=== PATIENT | female | born 1975 | race African-American/Black ===

== ENCOUNTER 2024-08-29 13:10 | Emergency (ER) | payer MEDICAID, OTHER ==
[~2024-08-29] VITALS: Ht 177.8 cm; Wt 80.0 kg
[2024-08-29 13:13] VITALS: O2SAT 100
[2024-08-29] MEDS ORDERED: FAMOTIDINE 20MG/2ML VIAL IV STA (13:20)
[2024-08-29] MEDS ORDERED: HALOPERIDOL LACTATE 5MG/ML VIAL IM ONE (13:30)
[2024-08-29] MEDS: LACTATED RINGERS 1,000 ML IV ONE (13:30)
[2024-08-29 14:25] LABS: CLARITY URINE CLEAR (CLEAR); COLOR URINE YELLOW (YELLOW); GLUCOSE URINE NEGATIVE (NEGATIVE); KETONES URINE TRACE (NEGATIVE); LEUKOCYTE ESTERASE URINE NEGATIVE (NEGATIVE); NITRITE URINE NEGATIVE (NEGATIVE); OCCULT BLOOD URINE NEGATIVE (NEGATIVE); PH URINE 5.5 (4.5-8.0); PROTEIN URINE NEGATIVE (NEGATIVE); SPECIFIC GRAVITY URINE 1.015 (1.005-1.030); UROBILINOGEN URINE 0.2 E.U./dL (0.2-1.0)
[2024-08-29 14:29] LABS: BASOPHILS % 0.6 % (0.0-2.0); EOSINOPHILS % 1.4 % (0.0-5.0); HEMATOCRIT. 46.2 % (36.0-48.0); HEMOGLOBIN. 15.4 g/dL (12.0-16.0); LYMPHOCYTES % 23.1 % (20.0-50.0); MEAN CORPUSCULAR HEMOGLOBIN 28.2 pg (28.0-32.0); MEAN CORPUSCULAR HGB CONC 33.2 g/dL (31.0-37.0); MEAN CORPUSCULAR VOLUME 84.9 fL (81.0-99.0); MEAN PLATELET VOLUME 9.9 fl (7.4-10.4); MONOCYTES % 3.8 % (2.0-8.0); NEUTROPHILS % 71.1 % (40.0-76.0); PLATELET 211 x1000/uL (130-400); RED BLOOD CELL COUNT 5.44 mill/uL (4.2-5.4); RED CELL DISTRIBUTION WIDTH 15.3 % (11.6-14.6); WHITE BLOOD COUNT 7.7 x1000/uL (4.5-11.0)
[2024-08-29 14:39] LABS: PROTHROMBIN TIME 10.6 sec (9.6-11.0)
[2024-08-29 14:43] LABS: CARBON DIOXIDE 22 mEq/L (21-32); CHLORIDE 113 mEq/L (98-107); POTASSIUM 3.6 mEq/L (3.5-5.1); SODIUM 143 mEq/L (136-145)
[2024-08-29 14:44] LABS: CALCIUM 9.8 mg/dL (8.7-10.4)
[2024-08-29 14:48] LABS: CREATININE 0.9 mg/dL (0.6-1.0); GLUCOSE 96 mg/dL (70-105); HCG SCREEN NEGATIVE
[2024-08-29 14:49] LABS: UREA NITROGEN BLOOD 6 mg/dL (9-23)
[2024-08-29 14:50] LABS: ALANINE AMINOTRANSFERASE 29 IU/L (10-49); ALBUMIN 4.6 g/dL (3.2-4.8); ASPARTATE AMINOTRANSFERASE 28 IU/L (<34)
[2024-08-29 14:51] LABS: BILIRUBIN DIRECT 0.2 mg/dL (<=3.0); BILIRUBIN TOTAL 0.5 mg/dL (0.1-1.0); PROTEIN TOTAL 7.4 g/dL (6.0-8.3)
[2024-08-29] MEDS: HALOPERIDOL LACTATE 5MG/ML VIAL IM SCH (15:37)
[2024-08-29] MEDS: FAMOTIDINE 20MG/2ML VIAL IV SCH (16:32)
[2024-08-29] MEDS: MORPHINE SULFATE 4 MG/ML INJ (FOR IV/IM USE) IV ONE (17:31)
[2024-08-29 18:00] VITALS: BP 120/72; PULSE 73; RESP 19; TEMP 36.4; O2SAT 100
[2024-08-29] MEDS: SODIUM CHLORIDE 0.9% 1,000 ML IV ONE (19:02)
== END 2024-08-29 20:01 | disposition short-term general hospital (02) ==
LOC: ER 13:10 → CANBEDREQ 18:02 → ER 20:01
DX: K57.32 Diverticulitis of large intestine without perforation or abscess without bleeding (principal); R10.84 Generalized abdominal pain; R11.2 Nausea with vomiting, unspecified; F12.90 Cannabis use, unspecified, uncomplicated; Z79.899 Other long term (current) drug therapy
CPT/HCPCS: 80076; 80048; 81003; 84703; 83690; 83735; 85025; 85610; 36415; 74176; 96361; 96372; 96374; 96375; 99285; J1308; J1630; J2270; J7120; J7030; Z7610